=== PATIENT | female | born 1960 | race Caucasian/White ===

== ENCOUNTER 2019-03-31 11:04 | Day surgery (SDC) | payer BC ==
[~2019-03-31] VITALS: Ht 165.1 cm; Wt 71.2 kg
[~2019-03-31 11:04] MED LIST: AMIT25TA PO; AMLO5TAB6 PO; ESTR62CR PV; HM M250T PO; IBUP-1114 PO; KRIL1CAP7 PO; LR 1,000 ML IV ONE; MELA5TAB31 PO; MULTCAP PO; OSTE5TAB PO; PRIL20TA2 PO; SERO1TAB PO; TOPA50TA8 PO; VALT500T PO; areds 2 PO
[2019-03-31] MEDS ORDERED: KETOROLAC 60 MG/2 ML VIAL (J1885) As Ordered ONE ×2 (11:12→13:04)
[2019-03-31] MEDS ORDERED: LIDOCAINE 2% INJ 100 MG/5 ML SDV (FOR ANES.) As Ordered ONE (11:34)
[2019-03-31] MEDS ORDERED: PROPOFOL 200 MG/20 ML VIAL As Ordered ONE ×2 (11:34→13:01)
[2019-03-31] MEDS ORDERED: dexameTHASONE 4 MG/ML 1ML VIAL (J1100) As Ordered ONE ×2 (11:34→11:35)
[2019-03-31] MEDS ORDERED: fentaNYL 100 MCG/2 ML INJECTION (J3010) As Ordered ONE (11:35)
[2019-03-31] MEDS ORDERED: MIDAZOLAM INJ 2 MG/2 ML VIAL (J2250) As Ordered ONE (11:35)
[2019-03-31] MEDS ORDERED: ONDANSETRON 4MG/2ML VIAL (J2405) As Ordered ONE (11:35)
[2019-03-31] MEDS ORDERED: IBUPROFEN 600 MG TAB PO PRN (15:00)
[2019-03-31] MEDS ORDERED: LR 1,000 ML IV SCH ×2 (15:00)
[2019-03-31] MEDS ORDERED: fentaNYL 100 MCG/2 ML INJECTION (J3010) IV PRN (15:00)
[2019-03-31] MEDS ORDERED: ONDANSETRON 4MG/2ML VIAL (J2405) IV PRN (15:00)
[2019-03-31] MEDS ORDERED: PERCOCET 5MG/325MG TAB As Ordered ONE (15:15)
[2019-03-31] MEDS: PERCOCET 5MG/325MG TAB PO PRN ×2 (15:23→15:27)
[2019-03-31 16:10] VITALS: BP 162/84
--- NOTE | 2019-04-01 11:48 | RO ---
DATE OF PROCEDURE: 03/31/2019 PREPROCEDURE DIAGNOSIS: Postmenopausal bleeding with abnormal sonogram. POSTPROCEDURE DIAGNOSIS: Postmenopausal bleeding with abnormal sonogram but there is no polyp or other significant finding. She has a very small postmenopausal uterus. PROCEDURE: Dilation and curettage, hysteroscopy and MyoSure. SURGEON: Dr. Audrey Dudley. FINANCIAL WELLNESS COACH: ANESTHESIA: Laryngeal mask anesthesia (LMA). SPECIMENS: Endometriosis. COMPLICATIONS: The had a perforation not requiring repair and because we were able to use MyoSure, we were able to get a sample without having to risk t he intestines. And as it happens, there were no abnormalities seen peritoneally either. DESCRIPTION OF PROCEDURE: Janie was brought to the operating room where sufficient LMA general anesthesia was induced. She was prepped, draped and positioned in the usual sterile fashion. The bladder was emptied and the cervix grasp with a single tooth tenaculum. This uterus would be accessible from below should that become necessary in the future. We had an uncomplicated dilation, she sounded to 6 and when we placed the scope, we had perforated at less than 6 cm. We were able to see no significant bleeding at the perforation site. There was no evidence of any intra-abdominal injury. The endometrial cavity was atrophic and postmenopausal appearing. I did not see any polyps or any lesions but we did take a MyoSure light for the sampling so that we could sample under direct visualization and avoid the risk of inadvertently sampling intestine. There probably will be a microscopic contamination from adipose tissue because we were able to see the adipose tissue away from the field but it was not attached to the uterus in any visible fashion. There certainly was none in the uterus. Visibly. There really is just an atrophic endometrium so I expect the sample to be scant but again, we were careful to sample what was present and we absolutely had access to the endometrium with the MyoSure. We then did curettage making sure that we stayed less than 4 cm in and again got the same type of tissue in return. We were able to follow the canal so there was not some other opening in the longer uterus. This is clearly following through the cervix and so I am not sure why the ultrasound looked interesting but the patient has a very reassuring dilation and curettage today. After the sampling, the procedure was ended. There is again, no significant bleeding. ESTIMATED BLOOD LOSS: Maybe 1 mL. FLUID REPLACEMENT: Crystalloid. Complications as already noted. Perforation not requiring repair. She had no drains. No other lesions. CONDITION AND DISPOSITION: Janie tolerated the procedure well and was recovering in the recovery room in good condition.
== END 2019-03-31 16:20 | disposition home or self-care (01) ==
LOC: M SDC 11:04
PROVIDERS: ATTEND Obstetrics & Gynecology
DX: N95.0 Postmenopausal bleeding (principal); I10 Essential (primary) hypertension; E78.5 Hyperlipidemia, unspecified; K21.9 Gastro-esophageal reflux disease without esophagitis; F31.9 Bipolar disorder, unspecified; Z88.8 Allergy status to other drugs, medicaments and biological substances; Z79.899 Other long term (current) drug therapy
CPT/HCPCS: 58558; 88305; J1100; J1885; J2250; J2405; J3010

== ENCOUNTER 2019-04-19 15:43 | Outpatient (RCR) | payer BC ==
[~2019-04-19 15:43] MED LIST changes: -LR 1,000 ML IV ONE
== END 2019-05-07 ==
LOC: M PT 15:43
PROVIDERS: ATTEND Podiatrist Foot Surgery
DX: Z51.89 Encounter for other specified aftercare (principal); Z98.890 Other specified postprocedural states; R60.0 Localized edema

== ENCOUNTER → 2021-06-14 | Outpatient (CLI) | payer BC ==
[~2021-06-14] MED LIST changes: -AMIT25TA PO; +AMIT25TA17 PO; +AMLO1TAB24 PO; -AMLO5TAB6 PO; -MELA5TAB31 PO; +MELA5TAB36 PO
--- NOTE | 2021-06-14 16:12 | REPMRS ---
Patient History The patient states she had a clinical breast exam in April 2021. Family history of unknown cancer at age 60 in mother, unknown cancer at age 47 in father. Took hormonal contraceptives for 10 years. Taking unspecified hormones for 3 years. Moderna vaccine 11/15/20 left arm. 12/17/20 left arm. Patient states no breast complaints today. Patient has signed MRS History Sheet. Digital Woman Screen Mammo: June 14, 2021 - Exam #: [id number] Bilateral CC and MLO view(s) were taken. Technologist: RT Jace Prior study comparison: March 14, 2020, bilateral digital mammo screening bilat, performed at [facility]. January 21, 2019, bilateral digital mammo screening bilat, performed at [facility]. January 01, 2018, bilateral digital mammo screening bilat, performed at [facility] [place]. FINDINGS: The breast tissue is almost entirely fat. The Volpara volumetric breast density category is: A. There has been no change in the appearance of the mammogram from the prior studies. There is no interval development of dominant mass, architectural distortion, or grouped microcalcification typical of malignancy. 3-D tomosynthesis shows no additional findings. Assessment: BI-RADS/ACR category 1 mammogram. Negative Mammogram. Recommendation Routine screening mammogram of both breasts in 1 year (for women over age 40). This patient's [facility] Lifetime Breast Cancer RIsk is estimated at 6.0 %. This mammogram was interpreted with the aid of an FDA-approved computer-aided dectection system. Electronically Signed By: Elvin Chávez MD 06/14/21 [id number]
== END ==
LOC: M WHC 14:26
PROVIDERS: ATTEND Registered Nurse
DX: Z12.31 Encounter for screening mammogram for malignant neoplasm of breast (principal)

== ENCOUNTER → 2022-04-27 | Outpatient (CLI) | payer BC ==
[~2022-04-27] MED LIST changes: +ASCO50TA PO; +CALC-176 PO; +IPRA3SP; +MAGN400C2 PO; +OMEP-173 PO; +PRESCAP PO; +QUET50TA4; +TOPI25TA10 PO; +VALA500T5 PO; +VITA100093 PO; +VITMTA PO
== END ==
LOC: M LABSMTC 11:35
PROVIDERS: ATTEND Surgery
DX: Z01.818 Encounter for other preprocedural examination (principal); Z11.52 Encounter for screening for COVID-19

== ENCOUNTER 2022-05-02 09:22 | Day surgery (SDC) | payer BC ==
[~2022-05-02] VITALS: Ht 162.6 cm; Wt 72.6 kg
[~2022-05-02 09:22] MED LIST changes: +NS 1,000 ML IV ONE
[2022-05-02] MEDS ORDERED: LIDOCAINE 2% 100MG/5ML SDV (FOR ANES.) As Ordered ONE (10:50)
[2022-05-02] MEDS ORDERED: propofoL 200 MG/20 ML VIAL As Ordered ONE ×2 (10:50→11:04)
[2022-05-02 11:40] VITALS: BP 123/72
== END 2022-05-02 12:09 | disposition home or self-care (01) ==
LOC: M OPP 09:22
PROVIDERS: ATTEND Surgery
DX: R19.5 Other fecal abnormalities (principal); K64.9 Unspecified hemorrhoids; I10 Essential (primary) hypertension; E78.00 Pure hypercholesterolemia, unspecified; F31.9 Bipolar disorder, unspecified; I48.91 Unspecified atrial fibrillation; Z79.51 Long term (current) use of inhaled steroids; Z79.818 Long term (current) use of other agents affecting estrogen receptors and estrogen levels; Z79.899 Other long term (current) drug therapy; Z88.1 Allergy status to other antibiotic agents; Z80.1 Family history of malignant neoplasm of trachea, bronchus and lung; Z80.51 Family history of malignant neoplasm of kidney

== ENCOUNTER → 2022-08-07 | Outpatient (CLI) | payer BC ==
[~2022-08-07] MED LIST changes: +KRIL1CAP PO; -KRIL1CAP7 PO; -NS 1,000 ML IV ONE
== END ==
LOC: M WHC 14:31
PROVIDERS: ATTEND Registered Nurse
DX: Z12.31 Encounter for screening mammogram for malignant neoplasm of breast (principal)

== ENCOUNTER → 2023-09-04 | Outpatient (CLI) | payer MEDICARE ==
[~2023-09-04] MED LIST changes: -AMIT25TA17 PO; +AMIT25TA19 PO
== END ==
LOC: M WHC 14:05
PROVIDERS: ATTEND Physician Assistant Medical
DX: Z12.31 Encounter for screening mammogram for malignant neoplasm of breast (principal)

== ENCOUNTER → 2025-01-20 | Outpatient (CLI) | payer MEDICARE ==
[~2025-01-20] MED LIST changes: +TOPI-256 PO; -TOPI25TA10 PO
== END ==
LOC: M WHC 14:00
PROVIDERS: ATTEND Physician Assistant Medical
DX: Z12.31 Encounter for screening mammogram for malignant neoplasm of breast (principal); R92.313 Mammographic fatty tissue density, bilateral breasts; Z13.820 Encounter for screening for osteoporosis; M81.0 Age-related osteoporosis without current pathological fracture; M85.851 Other specified disorders of bone density and structure, right thigh; M85.852 Other specified disorders of bone density and structure, left thigh